=== PATIENT | male | born 1960 | race Caucasian/White ===

== ENCOUNTER → 2023-09-27 | Outpatient (CLI) | payer OTHER ==
[~2023-09-27] MED LIST: AMLO-257 PO; ATOR40TA71 PO; OLME40TA18 PO
== END | disposition home or self-care (01) ==
LOC: RAH 10:51
PROVIDERS: ATTEND Family Medicine
DX: R25.1 Tremor, unspecified (principal); R53.1 Weakness
CPT/HCPCS: 70551

== ENCOUNTER 2024-02-13 13:04 | Emergency (ER) | payer OTHER ==
[~2024-02-13] VITALS: Ht 188 cm; Wt 108.9 kg
--- NOTE | 2024-02-13 13:31 | ERN ---
ED Note History of Present Illness Stated Complaint: STOMACH Chief Complaint: Nausea,Vomiting,Diarrhea Time Seen by MD: 13:05 Dictation: Patient comes he has some nausea vomiting and diarrhea over the last 10 days. Denies chest pain shortness of breath. Has a falls. Denies any fevers chills denies any dysuria hematuria discharge Allergies: Coded Allergies: No Known Drug Allergies (Unverified Allergy, Unknown, 03/02/23) Home Meds Reported Medications Olmesartan Medoxomil (Olmesartan Medoxomil) 40 Mg Tablet, 40 MG PO DAILY, TAB 03/02/23 Atorvastatin Calcium (Atorvastatin Calcium) 40 Mg Tablet, 40 MG PO HS, TAB 03/02/23 Amlodipine Besylate (Amlodipine Besylate) 5 Mg Tablet, 5 MG PO DAILY, TAB 03/02/23 Past Medical History Past Medical History: High Cholesterol, Hypertension Surgical History: None Review of System Dictation Constitutional: Negative for fever,chills, and weight loss Eyes: Negative for injury, pain,redness, and discharge ENT: Negative for injury,pain or swelling Cardiovascular: Negative for chest pain, palpitations, and edema Respiratory: Negative for shortness of breath, cough, and wheezing, Abdomen/GI: Nausea vomiting diarrhea Back: Negative for injury and pain : Negative for injury, bleeding and discharge MS/Extremity: Negative for injury and deformity Skin: Negative for rash, and discoloration Neuro: Negative for headache, weakness, numbness, tingling, and seizure Psych: Negative for suicide ideation, homicidal ideation, and hallucinations Initial Vital Sign VS Vital Signs Date Time Temp Pulse Resp B/P (MAP) Pulse Ox O2 Delivery O2 Flow Rate FiO2 02/13/24 13:38 98.1 69 16 156/88 97 Room Air 0 02/13/24 13:41 21 Physical Exam Dictation General: awake, alert, NAD Head/Face: Normocephalic, atraumatic Eyes: PERRL, EOMI, vision at baseline ENT: oral cavity clear, TMs clear, no signs of infection Neck: Trachea midline, supple, no nuchal rigidity Cardiovascular: RRR, normal S1/S2, No MRGs, no JVD Respiratory: CTAB, no respiratory distress, No rales or wheezes Abdomen: Soft, non-tender, non-distended, normal bowel sounds, no guarding or rebound. Skin: Warm, dry, normal turgor, no rash MS/Extremity: Pulses equal, no cyanosis, neurovascular intact, FROM Neuro: COAx4, GCS 15, strength 5/5, CN 2-12 intact, normal cerebellar exam, normal gait, Psych: Normal behavior, mood, and affect normal Results (Laboratory/Radiology) Laboratory/Radiology Laboratory Tests Test 02/13/24 13:47 White Blood Count 7.1 K/uL (4.8-10.8) Red Blood Count 3.87 MIL/uL (4.50-6.20) L Hemoglobin 13.8 g/dL (14.0-18.0) L Hematocrit 40.3 % (42-54) L Mean Corpuscular Volume 104.1 fL (79-99) H Mean Corpuscular Hemoglobin 35.7 pg (27.0-33.0) H Mean Corpuscular Hemoglobin Concent 34.2 g/dL (32.0-36.0) Red Cell Distribution Width 13.2 % (11.0-15.5) Platelet Count 131 K/uL (130-400) Mean Platelet Volume 10.3 fL (7.5-10.5) Immature Granulocyte % (Auto) 0.4 % (0-1) Neutrophils (%) (Auto) 71.6 % (40.0-77.0) Lymphocytes (%) (Auto) 17.5 % (21.0-51.0) L Monocytes (%) (Auto) 9.2 % (3.0-13.0) Eosinophils (%) (Auto) 0.7 % (0.0-8.0) Basophils (%) (Auto) 0.6 % (0.0-5.0) Neutrophils # (Auto) 5.1 K/uL (1.8-7.7) Lymphocytes # (Auto) 1.2 K/uL (1.0-4.8) Monocytes # (Auto) 0.7 K/uL (0.1-1.0) Eosinophils # (Auto) 0.05 K/uL (0.00-0.70) Basophils # (Auto) 0.04 K/uL (0.00-0.20) Absolute Immature Granulocyte (auto 0.03 K/uL (0-1) Nucleated Red Blood Cells 0.0 % (0.0-0.19) Sodium Level 140 mmol/L (136-145) Potassium Level 3.0 mmol/L (3.5-5.1) *L Chloride Level 100 mmol/L (101-111) L Carbon Dioxide Level 25 mmol/L (21-32) Blood Urea Nitrogen 2 mg/dL (7-18) L Creatinine 0.7 mg/dL (0.5-1.3) Glomerular Filtration Rate Calc 102 mL/min (>90) Random Glucose 93 mg/dL (70-105) Total Calcium 7.3 mg/dL (8.5-10.1) L Total Bilirubin 1.7 mg/dL (0.2-1.0) H Aspartate Amino Transf (AST/SGOT) 160 U/L (10-37) H Alanine Aminotransferase (ALT/SGPT) 38 U/L (12-78) Alkaline Phosphatase 139 U/L (50-136) H Troponin I High Sensitivity 7 ng/L (4-75) Total Protein 7.1 g/dL (6.0-8.3) Albumin 2.2 g/dL (3.5-5.0) L Lipase 97 U/L (16-77) H ED Course ED Course Orders Procedure Category Date Status Time Cbc With Differential LAB 02/13/24 Complete 13:28 Comprehensive LAB 02/13/24 Complete Metabolic Panel 13:28 Troponin I High LAB 02/13/24 Complete Sensitivity 13:28 12 Lead Ekg Tracing- EKG 02/13/24 Complete Technical 13:28 Lactated Ringers PHA 02/13/24 Complete 1000ml (Lactated 13:30 Morphine 4mg Syg PHA 02/13/24 Complete (Morphine 4mg Syg) 13:30 Ondansetron 4mg Inj PHA 02/13/24 Complete (Zofran 4mg Inj) 13:30 Ct Abdomen/Pelvis W/O CT 02/13/24 Resulted Contrast 13:28 Chest 1vw RAD 02/13/24 Resulted 13:28 Lipase LAB 02/13/24 Complete 13:28 Potassium Chl 10% PHA 02/13/24 Complete Elixir 20meq (Kcl 10% 14:30 Potassium Chl 10% PHA 02/13/24 Complete Elixir 20meq (Kcl 10% 14:22 Current Medications Medications (Trade) Dose Ordered Sig/Meeta Route PRN Reason Start Time Stop Time Status Last Admin Dose Admin Lactated Ringer's 1,000 ml @ 0 mls/hr ONCE ONCE IV 02/13/24 13:30 02/13/24 13:31 DC 02/13/24 14:05 Morphine Sulfate (morPHINE 4MG SYG) 4 mg ONCE ONCE IVP 02/13/24 13:30 02/13/24 13:31 DC 02/13/24 14:13 Ondansetron HCl (zoFRAN 4MG INJ) 4 mg ONCE ONCE IVP 02/13/24 13:30 02/13/24 13:31 DC 02/13/24 14:05 Potassium Chloride (KCl 10% Elixir 20meq/15ml) 20 meq STK-MED ONCE .ROUTE 02/13/24 14:22 02/13/24 14:27 DC Potassium Chloride (KCl 10% Elixir 20meq/15ml) 40 meq ONCE ONCE PO 02/13/24 14:30 02/13/24 14:31 DC 02/13/24 14:24 Vital Signs Date Time Temp Pulse Resp B/P (MAP) Pulse Ox O2 Delivery O2 Flow Rate FiO2 02/13/24 13:41 98.1 69 16 156/88 97 Room Air* 0 21 02/13/24 13:38 98.1 69 16 156/88 97 Room Air 0 Medical Decision Making MDM Likely gastroenteritis. So we can do some labs tests imaging make sure he is stable. I told him it could be there could be Crohn's or UC. And/or other pathologies. But we will check for stability and make sure he is safe for outpatient management there agreement this no other questions complaints concerns at this time. DX & DISP Disposition: Discharge Departure Impression: Primary Impression: Nausea & vomiting Additional Impressions: Diarrhea, Diverticulitis Condition: Stable Scripts Ondansetron (Ondansetron Odt) 4 Mg Tab.rapdis 4 MG PO 5X/DAY for 5 Days, #25 TAB Prov: NEIL EPPERSON MD 02/13/24 Amoxicillin/Potassium Clav (Amox Tr-K Clv 875-125 mg Tab) 875 Mg-125 Mg Tablet 1 EACH PO BID for 10 Days, #10 TAB 0 Refills Prov: NEIL EPPERSON MD 02/13/24 Referrals: ASHLYN MARTE MD (PCP) NEIL EPPERSON MD Feb 13, 2024 13:31
--- NOTE | 2024-02-13 13:38 | EKG ---
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
--- NOTE | 2024-02-13 13:56 | HMCIMG ---
CHEST 1VW HISTORY: Chest pain COMPARISON: 03/02/2023 FINDINGS: A frontal projection of the chest was obtained. Prominent interstitial markings are seen with possible superimposed infiltrates. The heart is borderline enlarged. Degenerative changes are seen. IMPRESSION: 1. Prominent interstitial markings are seen with possible superimposed infiltrates.
[2024-02-13 14:05] LABS: BASOPHILS # (AUTO) 0.04 K/uL (0.00-0.20); BASOPHILS % (AUTO) 0.6 % (0.0-5.0); EOSINOPHILS # (AUTO) 0.05 K/uL (0.00-0.70); EOSINOPHILS % (AUTO) 0.7 % (0.0-8.0); HEMATOCRIT 40.3 % (42-54); IMMATURE GRANULOCYTE ABSOLUTE 0.03 K/uL (0-1); LYMPHOCYTES # (AUTO) 1.2 K/uL (1.0-4.8); LYMPHOCYTES % (AUTO) 17.5 % (21.0-51.0); MEAN CORPUSCULAR HEMOGLOBIN 35.7 pg (27.0-33.0); MEAN CORPUSCULAR HGB CONC 34.2 g/dL (32.0-36.0); MEAN CORPUSCULAR VOLUME 104.1 fL (79-99); MONOCYTES # (AUTO) 0.7 K/uL (0.1-1.0); MONOCYTES % (AUTO) 9.2 % (3.0-13.0); NEUTROPHILS # (AUTO) 5.1 K/uL (1.8-7.7); NEUTROPHILS % (AUTO) 71.6 % (40.0-77.0); PLATELET COUNT (AUTO) 131 K/uL (130-400); RED BLOOD CELL COUNT(AUTO) 3.87 MIL/uL (4.50-6.20); RED CELL DISTRIBUTION WIDTH 13.2 % (11.0-15.5); WHITE BLOOD COUNT (AUTO) 7.1 K/uL (4.8-10.8)
[2024-02-13] MEDS: ondanSETRON 4MG INJ IVP ONE (14:05)
[2024-02-13] MEDS: LACTATED RINGERS 1000ML 1,000 ML IV ONE (14:05)
[2024-02-13 14:12] LABS: ALBUMIN 2.2 g/dL (3.5-5.0); BILIRUBIN,TOTAL 1.7 mg/dL (0.2-1.0); CREATININE 0.7 mg/dL (0.5-1.3); TOTAL PROTEIN, SERUM 7.1 g/dL (6.0-8.3)
[2024-02-13] MEDS: morPHINE 4 MG SYG IVP ONE (14:13)
--- NOTE | 2024-02-13 14:19 | HMCIMG ---
CT ABDOMEN/PELVIS W/O CONTRAST HISTORY: Abdominal pain COMPARISON: None TECHNIQUE: Multiple sequential axial images of the abdomen and pelvis were obtained from the dome of the diaphragm through symphysis pubis. Patient was not given contrast through intravenous route. Oral contrast was not given. FINDINGS: No pleural effusion is seen bilaterally. There is no evidence of parenchymal disease or pulmonary nodule of the visualized lower lungs. Degenerative changes of the thoracolumbar spine are present. The heart is not enlarged. Liver is enlarged with fatty changes measuring 28 cm. There is diverticulosis. Minimal mesenteric fat stranding is seen adjacent to the sigmoid colon may be related to early acute diverticulitis. No focal abscess is seen. The liver, spleen, adrenal glands and pancreas are unremarkable. There is no evidence of hydronephrosis bilaterally. No evidence of renal stone is seen. Fecal material is seen in the colon. There are normal size retroperitoneal and mesenteric lymph nodes. Small amount of free fluid is seen in the pelvis. Atherosclerotic changes are present. Pelvic sidewalls are symmetric bilaterally. Bladder is well distended without wall thickening. IMPRESSION: 1. There is diverticulosis. Minimal mesenteric fat stranding is seen adjacent to the sigmoid colon may be related to early acute diverticulitis. No focal abscess is seen. Small amount of free fluid is seen in the pelvis. CT was performed with one or more following dose reduction techniques: automated exposure control, adjustment of the mA and kv according to patient's size, or use of a iterative reconstruction technique.
[2024-02-13] MEDS: PoTASSium chl 10% ELIXIR 20MEQ 20 MEQ/15 ML UDCUP PO ONE (14:24)
[2024-02-13] MEDS ORDERED: AMOX1TAB16 PO (14:46)
[2024-02-13] MEDS ORDERED: ONDA-243 PO (14:46)
[2024-02-13] MEDS: PoTASSium chl 10% ELIXIR 20MEQ 20 MEQ/15 ML UDCUP ONE (15:31)
[2024-02-13 15:41] VITALS: BP 107/59; PULSE 97; RESP 18; TEMP 98.1; O2SAT 97
== END 2024-02-13 16:14 | disposition home or self-care (01) ==
LOC: EDH 13:04
DX: R11.2 Nausea with vomiting, unspecified (principal); R19.7 Diarrhea, unspecified; K57.32 Diverticulitis of large intestine without perforation or abscess without bleeding; E78.00 Pure hypercholesterolemia, unspecified; I10 Essential (primary) hypertension
CPT/HCPCS: 99285; 74176; 96374; 71045; 96361; 96375; 84484; 80053; 83690; 85025; 36415; 93005; J7120; J2405; J2270

== ENCOUNTER 2025-01-02 07:58 | Observation (INO) | payer OTHER, MEDICARE ==
[~2025-01-02] VITALS: Ht 188 cm; Wt 95.3 kg
--- NOTE | 2025-01-02 08:17 | NUR ---
PATIENT IN ROOM
[2025-01-02 08:26] LABS: IMMATURE GRANULOCYTE ABSOLUTE 0.03 K/uL (0-1); NUCLEATED RED BLOOD CELLS 0.0 % (0.0-0.19); PLATELET COUNT (AUTO) 95 K/uL (130-400); RED BLOOD CELL COUNT(AUTO) 4.01 MIL/uL (4.50-6.20); RED CELL DISTRIBUTION WIDTH 11.9 % (11.0-15.5); WHITE BLOOD COUNT (AUTO) 5.5 K/uL (4.8-10.8)
[2025-01-02 08:48] LABS: ASPARTATE AMINOTRANSFERASE 183.0 U/L (10-37); CREATINE KINASE, TOTAL 25.0 U/L (21-232); CREATININE 1.0 mg/dL (0.5-1.3); GLOMERULAR FILTR. RATE CALC 83.0 mL/min (>90); GLUCOSE,RANDOM 109.0 mg/dL (70-105); SODIUM SERUM 130.0 mmol/L (136-145); TOTAL PROTEIN, SERUM 7.7 g/dL (6.0-8.3); UREA NITROGEN, BLOOD 7.0 mg/dL (7-18)
--- NOTE | 2025-01-02 08:58 | NUR ---
PT PLACE ON 2L OF OXYGEN. PT STATES FEELING SHORT OF BREATH. PT'S O2 LEVEL IS 100%.
--- NOTE | 2025-01-02 09:02 | HMCIMG ---
EXAM: CR Chest, 1 View. CLINICAL HISTORY: fall COMPARISON: None. FINDINGS: Lungs show no pulmonary infiltrate or other acute finding. No pleural effusion. There is no pneumothorax. The cardiomediastinal silhouette is within normal limits. No acute osseous abnormality is seen. IMPRESSION: No acute cardiopulmonary disease is seen. /[place]
--- NOTE | 2025-01-02 09:15 | HMCIMG ---
EXAM: CT Head Without IV contrast. CLINICAL HISTORY: Fall. TECHNIQUE: Axial computed tomography images of the head/brain without intravenous contrast. COMPARISON: None provided. FINDINGS: BRAIN: No evidence of acute hemorrhage. No mass lesion. No CT evidence for acute territorial infarct. No midline shift or extra-axial collections. Diffuse cerebral atrophy in the form of prominent cortical sulci and ventricular system. Diffuse hypodensities in bilateral periventricular white matter, suggestive of mild chronic small vessel ischemic changes. VENTRICLES: No hydrocephalus. ORBITS: The orbits are unremarkable. SINUSES AND MASTOIDS: The paranasal sinuses and mastoid air cells are clear. BONES: No fracture. SOFT TISSUES: Unremarkable. IMPRESSION: No acute intracranial abnormality. Mild chronic ischemic changes secondary to small vessel disease. /[place]
[2025-01-02] MEDS: PoTASSium chloRIDE 20MEQ ER 20 MEQ ERTAB PO STA (09:25)
[2025-01-02] MEDS: MAGNESIUM OXIDE 400 MG TABLET PO STA (09:26)
[2025-01-02 10:25] LABS: APPEARANCE,URINE CLEAR (CLEAR); GLUCOSE, URINE (UA) 100 mg/dL (NEGATIVE); LEUKOCYTE ESTERASE ,URINE NEGATIVE Leu/uL (NEGATIVE); NITRATE,URINE POSITIVE (NEGATIVE); OCCULT BLOOD,URINE NEGATIVE (NEGATIVE)
[2025-01-02 10:34] LABS: ADD UA MICROSCOPIC YES
[2025-01-02 10:39] LABS: CALCIUM OXALATE CRYSTALS,UR Few /LPF (None Seen); SQUAMOUS EPITHELIAL CELL,UR 0-2 /HPF (0-2)
--- NOTE | 2025-01-02 10:51 | HP ---
[facility] HISTORY AND PHYSICAL Date of Service: Jan 02, 2025 Time of Service: 10:34 HISTORY OF PRESENT ILLNESS: [ ] admission date: weakness PCP David Carcamo this a 64 year old male after having a fall at home 2-3 days ago. Patient has a significant medical history of falls in the past patient reports worsening lower extremity weakness. Patient reports he drinks alcohol his last consumption was on Monday . He also Reports his also drinks heavily. Patient denies any episodes of chest pain, dizziness palpitations diarrhea nausea and vomiting. But he does mention he has been getting shortness a breath. Patient is very hard of hearing. The patient appears fragile weak. Patient will be started on a banana bag and we will be monitored closely we will replace electrolytes as per protocol. Labs on admission WBCs 5.5 hemoglobin 14.6 hematocrit 39.8 platelets 95 sodium 130 potassium 2.9 chloride 91 total bilirubin 3.9 direct bilirubin 2.7 elevated troponins slightly AST 183 ALT 126 CK [address] head was negative, chest x-ray with no acute cardiopulmonary disease REVIEW OF SYSTEMS a 12 point ROS obtained all relevant positive documented otherwise ROS negative PAST MEDICAL HISTORY: [ ] HTN, HLD PAST SURGICAL HISTORY: [ ] none PAST SOCIAL HISTORY: [ ] ETOH dependency denies smoking tobacco products and illicit drug use FAMILY HISTORY: [ ] noncontributory Coded Allergies: No Known Drug Allergies (Unverified Allergy, Unknown, 03/02/23) PHYSICAL EXAM GENERAL APPEARANCE: The patient is awake, alert, and oriented, in no acute cardiopulmonary distress. NEUROLOGICAL: Cranial nerves II-XII grossly intact. Motor is 5/5 in bilateral upper and lower extremities proximal to distal. No sensory deficits. HEENT: Face is symmetric. Pupils are equal and reactive. Extraocular movements are intact. NECK: Supple. No JVD. No thyromegaly. No submental, submandibular, pre- /postauricular, occipital or supraclavicular lymphadenopathy. CHEST: Normal chest expansion. No Telemetry. LUNGS: Absence of any rales, rhonchi or any wheezing. CARDIOVASCULAR: Regular. S1 and S2 normal. No appreciable rubs, murmurs or gallops. ABDOMEN: Soft, nontender, and nondistended. There is no rebound, voluntary guarding, or rigidity. : Deferred. No Adler. EXTREMITIES: Non-edematous and not cyanotic. No clubbing. Good capillary refill. SKIN: No skin breakdown. Vital Sign (Last 24 Hours) 01/02/25 08:17 Temp 98.1 Pulse 72 Resp 15 B/P (MAP) 128/76 Pulse Ox 98 O2 Delivery Room Air* O2 Flow Rate 0 FiO2 21 LABS: Laboratory: Test 01/02/25 08:21 Range/Units White Blood Count 5.5 4.8-10.8 K/uL Red Blood Count 4.01 L 4.50-6.20 MIL/uL Hemoglobin 14.6 14.0-18.0 g/dL Hematocrit 39.8 L 42-54 % Mean Corpuscular Volume 99.3 H 79-99 fL Mean Corpuscular Hemoglobin 36.4 H 27.0-33.0 pg Mean Corpuscular Hemoglobin Concent 36.7 H 32.0-36.0 g/dL Red Cell Distribution Width 11.9 11.0-15.5 % Platelet Count 95 L 130-400 K/uL Mean Platelet Volume 9.8 7.5-10.5 fL Immature Granulocyte % (Auto) 0.5 0-1 % Neutrophils (%) (Auto) 68.4 40.0-77.0 % Lymphocytes (%) (Auto) 19.6 L 21.0-51.0 % Monocytes (%) (Auto) 9.7 3.0-13.0 % Eosinophils (%) (Auto) 1.3 0.0-8.0 % Basophils (%) (Auto) 0.5 0.0-5.0 % Neutrophils # (Auto) 3.7 1.8-7.7 K/uL Lymphocytes # (Auto) 1.1 1.0-4.8 K/uL Monocytes # (Auto) 0.5 0.1-1.0 K/uL Eosinophils # (Auto) 0.07 0.00-0.70 K/uL Basophils # (Auto) 0.03 0.00-0.20 K/uL Absolute Immature Granulocyte (auto 0.03 0-1 K/uL Nucleated Red Blood Cells 0.0 0.0-0.19 % Red Blood Cell Morphology See comments Sodium Level 130 L 136-145 mmol/L Potassium Level 2.9 *L 3.5-5.1 mmol/L Chloride Level 91 L 101-111 mmol/L Carbon Dioxide Level 21 21-32 mmol/L Blood Urea Nitrogen 7 7-18 mg/dL Creatinine 1.0 0.5-1.3 mg/dL Glomerular Filtration Rate Calc 83 >90 mL/min Random Glucose 109 H 70-105 mg/dL Lactic Acid Level 1.9 0.8-2.5 mmol/L Total Calcium 9.4 8.5-10.1 mg/dL Total Bilirubin 3.9 H 0.2-1.0 mg/dL Direct Bilirubin 2.7 H 0.0-0.3 mg/dL Aspartate Amino Transf (AST/SGOT) 183 H 10-37 U/L Alanine Aminotransferase (ALT/SGPT) 126 H 12-78 U/L Alkaline Phosphatase 55 50-136 U/L Total Creatine Kinase 25 # 21-232 U/L Troponin I High Sensitivity 15 4-75 ng/L Total Protein 7.7 6.0-8.3 g/dL Albumin 3.5 3.5-5.0 g/dL Current Medications Medications (Trade) Dose Ordered Sig/Meeta Route PRN Reason Start Time Stop Time Status Last Admin Dose Admin Diazepam (VALium 5 MG/ML 2 ML SYG) 5 mg ONCE STAT IV 01/02/25 09:40 01/02/25 09:46 DC 01/02/25 09:54 5 MG Magnesium Oxide (Mag-Ox) 800 mg ONCE STAT PO 01/02/25 08:57 01/02/25 09:01 DC 01/02/25 09:26 800 MG Ondansetron HCl (zoFRAN 4MG INJ) 4 mg ONCE STAT IVP 01/02/25 09:40 01/02/25 09:46 DC 01/02/25 09:54 4 MG Potassium Chloride (K-Dur/Klor-Con 20meq) 40 meq ONCE STAT PO 01/02/25 08:57 01/02/25 09:01 DC 01/02/25 09:25 40 MEQ DIAGNOSTICS / RADIOLOGY: [ ] ASSESSMENT: Multiple falls in the past POA most recent two days ago POA electrolytes derangement: hyponatremia Hypokalemia Recent fall two days ago POA Failure to thrive POA Physical deconditioning CHINIK Alcohol dependency chronic problems: HTN, HLD PLAN: Admit: medical surgical with Tele condition:guarded Status:full code IVF:Banana bag x3 days, Thiamine IV daily, and folic acid daily > CIWA protocol > Replace electrolytes as needed as per protocol to keep potassium above 4.0 magnesium 2.0. Consultants: none Antibiotics: None Imaging carotid Dopplers 2D echo to evaluate LV function PT eval and treat. 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 PRN: MEDICATIONS Tylenol 650 mg po every 4 hrs for fever Zofran 4 mg IV every 6 hrs for n/v Hydralazine 5 mg IV every 4 hrs systolic pressure > 160 bowel regiment: lactulose 20 gm PO BID PRN constipation Supportive measures: DVT ppx, GI ppx all questions answered time spent: > 35 min Supervising MD: Dr. Lilly P. c/d This document was generated in part using voice recognition software, occasional wrong word or sound alike substitutions may have occurred due to the inherent limitations of voice recognition software. Read the chart carefully and recognize using context, where the substitutions have occurred. Although every effort was made to edit the content, supervisor stave cutting and typing errors may occur ADVANCED CARE PLANNING 1. Which of the following were discussed? Hospice Care - Yes / No Therapeutic options - Yes / No Advance Directives - Yes / No Other discussions - 2. Discussed with who? 3. Voluntary nature of this service was explained to the patient? Yes / No 4. Amount of time spent - 5. Reviewed by Physician? (if this service was performed by NPP) Yes / No ATTESTATION BY PHYSICIAN I have seen and examined the patient. I reviewed the documentation, medical decision making, and treatment plan as noted by the mid-level provider above. I agree with the findings and plan of care. Joyce Lilly MD, [facility] Jan 02, 2025 10:51
[2025-01-02] MEDS ORDERED: LACTULOSE 20 GM/30 ML UDCUP PO PRN (11:00)
[2025-01-02] MEDS ORDERED: PHARMACY COMMUNICATION MISC PRN (11:00)
[2025-01-02] MEDS ORDERED: COMPOUND IV REFRIGERATED 1 EACH IVSOLN MISC PRN (11:00)
[2025-01-02] MEDS ORDERED: PoTASSium chl 10% ELIXIR 20MEQ 20 MEQ/15 ML UDCUP PO PRN (11:00)
--- NOTE | 2025-01-02 11:06 | ERN ---
ED Note History of Present Illness Stated Complaint: WEAKNESS Chief Complaint: Weakness Time Seen by MD: 08:01 Dictation: 64-year-old male presenting to the emergency department after fall three four days ago and worsening generalized weakness patient lives at home with , reported patient does drink heavily and has not been doing well over the past few days. Patient reports feeling weak with nausea no chest pain or shortness a breath. Allergies: Coded Allergies: No Known Drug Allergies (Unverified Allergy, Unknown, 03/02/23) Home Meds Active Scripts Ondansetron (Ondansetron Odt) 4 Mg Tab.rapdis, 4 MG PO 5X/DAY for 5 Days, #25 TAB Prov:NEIL EPPERSON MD 02/13/24 Amoxicillin/Potassium Clav (Amox Tr-K Clv 875-125 mg Tab) 875 Mg-125 Mg Tablet, 1 EACH PO BID for 10 Days, #10 TAB 0 Refills Prov:NEIL EPPERSON MD 02/13/24 Reported Medications Olmesartan Medoxomil (Olmesartan Medoxomil) 40 Mg Tablet, 40 MG PO DAILY, TAB 03/02/23 Atorvastatin Calcium (Atorvastatin Calcium) 40 Mg Tablet, 40 MG PO HS, TAB 03/02/23 Amlodipine Besylate (Amlodipine Besylate) 5 Mg Tablet, 5 MG PO DAILY, TAB 03/02/23 Past Medical History Past Medical History: High Cholesterol, Hypertension Surgical History: None Review of System Dictation Constitutional: Negative for fever,chills, and weight loss Eyes: Negative for injury, pain,redness, and discharge ENT: Negative for injury,pain or swelling Cardiovascular: Negative for chest pain, palpitations, and edema Respiratory: Negative for shortness of breath, cough, and wheezing, Abdomen/GI: Negative for abdominal pain, positive for nausea Back: Negative for injury and pain : Negative for injury, bleeding and discharge MS/Extremity: Negative for injury and deformity Skin: Negative for rash, and discoloration Neuro: Per HPI Initial Vital Sign VS Vital Signs Date Time Temp Pulse Resp B/P (MAP) Pulse Ox O2 Delivery O2 Flow Rate FiO2 01/02/25 07:59 97.9 116 18 137/72 98 Room Air 0 01/02/25 08:17 21 Physical Exam Dictation General: awake, alert, appears unkept Head/Face: Normocephalic, atraumatic Eyes: PERRL, EOMI, vision at baseline ENT: oral cavity clear, TMs clear, no signs of infection Neck: Trachea midline, supple, no nuchal rigidity Cardiovascular: RRR, normal S1/S2, No MRGs, no JVD Respiratory: CTAB, no respiratory distress, No rales or wheezes Abdomen: Soft, non-tender, non-distended, normal bowel sounds, no guarding or rebound. Skin: Warm, dry, normal turgor, no rash MS/Extremity: Pulses equal, no cyanosis, neurovascular intact, FROM Neuro: COAx4, GCS 15, strength 5/5, CN 2-12 intact, Results (Laboratory/Radiology) Laboratory/Radiology Laboratory Tests Test 01/02/25 08:21 01/02/25 10:17 White Blood Count 5.5 K/uL (4.8-10.8) Red Blood Count 4.01 MIL/uL (4.50-6.20) L Hemoglobin 14.6 g/dL (14.0-18.0) Hematocrit 39.8 % (42-54) L Mean Corpuscular Volume 99.3 fL (79-99) H Mean Corpuscular Hemoglobin 36.4 pg (27.0-33.0) H Mean Corpuscular Hemoglobin Concent 36.7 g/dL (32.0-36.0) H Red Cell Distribution Width 11.9 % (11.0-15.5) Platelet Count 95 K/uL (130-400) L Mean Platelet Volume 9.8 fL (7.5-10.5) Immature Granulocyte % (Auto) 0.5 % (0-1) Neutrophils (%) (Auto) 68.4 % (40.0-77.0) Lymphocytes (%) (Auto) 19.6 % (21.0-51.0) L Monocytes (%) (Auto) 9.7 % (3.0-13.0) Eosinophils (%) (Auto) 1.3 % (0.0-8.0) Basophils (%) (Auto) 0.5 % (0.0-5.0) Neutrophils # (Auto) 3.7 K/uL (1.8-7.7) Lymphocytes # (Auto) 1.1 K/uL (1.0-4.8) Monocytes # (Auto) 0.5 K/uL (0.1-1.0) Eosinophils # (Auto) 0.07 K/uL (0.00-0.70) Basophils # (Auto) 0.03 K/uL (0.00-0.20) Absolute Immature Granulocyte (auto 0.03 K/uL (0-1) Nucleated Red Blood Cells 0.0 % (0.0-0.19) Red Blood Cell Morphology See comments Sodium Level 130 mmol/L (136-145) L Potassium Level 2.9 mmol/L (3.5-5.1) *L Chloride Level 91 mmol/L (101-111) L Carbon Dioxide Level 21 mmol/L (21-32) Blood Urea Nitrogen 7 mg/dL (7-18) Creatinine 1.0 mg/dL (0.5-1.3) Glomerular Filtration Rate Calc 83 mL/min (>90) Random Glucose 109 mg/dL (70-105) H Lactic Acid Level 1.9 mmol/L (0.8-2.5) Total Calcium 9.4 mg/dL (8.5-10.1) Total Bilirubin 3.9 mg/dL (0.2-1.0) H Direct Bilirubin 2.7 mg/dL (0.0-0.3) H Aspartate Amino Transf (AST/SGOT) 183 U/L (10-37) H Alanine Aminotransferase (ALT/SGPT) 126 U/L (12-78) H Alkaline Phosphatase 55 U/L (50-136) Total Creatine Kinase 25 U/L (21-232) # Troponin I High Sensitivity 15 ng/L (4-75) Total Protein 7.7 g/dL (6.0-8.3) Albumin 3.5 g/dL (3.5-5.0) Urine Color DARK YELLOW (YELLOW) Urine Appearance CLEAR (CLEAR) Urine pH 6.5 (5.0-8.0) Urine Specific Printer 1.020 (1.001-1.031) Urine Protein 30 mg/dL (NEGATIVE) H Urine Glucose (UA) 100 mg/dL (NEGATIVE) H Urine Ketones >=80 mg/dL (NEGATIVE) H Urine Occult Blood NEGATIVE (NEGATIVE) Urine Nitrate POSITIVE (NEGATIVE) H Urine Bilirubin LARGE mg/dL (NEGATIVE) H Urine Urobilinogen >=8.0 mg/dL (0.2-1.0) H Urine Leukocyte Esterase NEGATIVE Antolin/uL Urine RBC 0-1 /HPF (0-1) Urine WBC 0-1 /HPF (0-1) Urine Squamous Epithelial Cells 0-2 /HPF (0-2) Urine Calcium Oxalate Crystals Few /LPF (None Seen) H Urine Bacteria Few /HPF (None Seen) Labs Reviewed?: Yes ED Course ED Course Orders Procedure Category Date Status Time 12 Lead Ekg Tracing- EKG 01/02/25 Logged Technical 08:03 Basic Metabolic Panel LAB 01/02/25 Complete 08:03 Blood Cult CHERELLE 01/02/25 In Process 08:03 Cbc With Differential LAB 01/02/25 Complete 08:03 Hepatic Function Panel LAB 01/02/25 Complete 08:03 Creatine Kinase, Total LAB 01/02/25 Complete 08:03 Lactic Acid LAB 01/02/25 Complete 08:03 Troponin I High LAB 01/02/25 Complete Sensitivity 08:03 Urinalysis Profile LAB 01/02/25 Complete 08:03 Chest 1vw RAD 01/02/25 Resulted 08:03 Ct Head/Brain W/O CT 01/02/25 Resulted Contrast 08:03 Magnesium Oxide PHA 01/02/25 Complete (Mag-Ox) 08:57 Potassium Chloride PHA 01/02/25 Complete 20meq Er (K-Dur/Klor- 08:57 Ondansetron 4mg Inj PHA 01/02/25 Complete (Zofran 4mg Inj) 09:40 Diazepam 5 Mg/Ml 2 Ml PHA 01/02/25 Complete Syg (Valium 5 Mg/M 09:40 Culture Urine CHERELLE 01/02/25 In Process 10:34 Admit Orders ADM 01/02/25 Transmitted 10:42 Etoh Alcohol DICK 01/02/25 In Process Withdrawal Ords 10:42 Chlordiazepoxide Hcl PHA 01/02/25 In Process 25 Mg Cap (Librium 11:00 Lorazepam 2 Mg PHA 01/02/25 In Process (Ativan) 11:00 Thiamine Hcl (Vitamin PHA 01/02/25 In Process B-1)... 11:00 Thiamine Hcl (Vitamin PHA 01/03/25 In Process B-1) 09:00 Folic Acid 1 Mg PHA 01/03/25 In Process Tablet (Folic Acid 1 09:00 Pharmacy PHA 01/02/25 In Process Communication 11:00 Use The Ciwa-Ar CPOE 01/02/25 Transmitted Assmt. Tool 10:42 Assess The Need For CPOE 01/02/25 Transmitted Seizure & 10:42 Vs Per Unit Routine & CPOE 01/02/25 Transmitted With 10:42 Document Etoh CPOE 01/02/25 Transmitted Withdrawal Score 10:42 Initiate Po DICK 01/02/25 In Process Hypokalemia Protoc 10:42 Potassium Chloride PHA 01/02/25 In Process 20meq/100ml ([place] 11:00 Potassium Chl 10% PHA 01/02/25 In Process Elixir 20meq (Kcl 10% 11:00 Potassium Chloride PHA 01/02/25 In Process 20meq Er (K-Dur/Klor- 11:00 Notify Physician If CPOE 01/02/25 Transmitted There Is 10:42 Notify Md On The Next CPOE 01/02/25 Transmitted 10:42 Notify Md On The CPOE 01/02/25 Transmitted Next(Cont.) 10:42 Magnesium 2gm Premix PHA 01/02/25 In Process 50ml (Magnesium 2gm 11:00 Apply Scds CPOE 01/02/25 Transmitted 10:42 Fall Precautions CPOE 01/02/25 Transmitted 10:42 Pt Eval And Treat PT 01/02/25 Transmitted 10:42 Hydralazine 20mg Inj PHA 01/02/25 In Process (Apresoline 20mg In 11:00 Ondansetron 4mg Inj PHA 01/02/25 In Process (Zofran 4mg Inj) 11:00 Lactulose 20 Gm/30 Ml PHA 01/02/25 In Process Udcup (Constulose 11:00 Pantoprazole 40mg Inj PHA 01/03/25 In Process (Protonix 40mg Inj 09:00 Pantoprazole 40mg Inj PHA 01/02/25 Complete (Protonix 40mg Inj 11:00 Compound Iv PHA 01/02/25 In Process Refrigerated 11:00 Current Medications Medications (Trade) Dose Ordered Sig/Meeta Route PRN Reason Start Time Stop Time Status Last Admin Dose Admin Chlordiazepoxide HCl (LIBrium 25 MG CAP) 25 mg Q2H PRN PO ALCOHOL WITHDRAWAL PROTOCOL 01/02/25 11:00 01/09/25 10:59 Diazepam (VALium 5 MG/ML 2 ML SYG) 5 mg ONCE STAT IV 01/02/25 09:40 01/02/25 09:46 DC 01/02/25 09:54 Folic Acid (FOLic ACID 1 MG TABLET) 1 mg DAILY PO 01/03/25 09:00 01/05/25 09:01 Hydralazine HCl (APRESOLine 20MG INJ) 5 mg Q4H PRN IV ADMINISTER FOR SBP > 160 01/02/25 11:00 02/01/25 10:59 Lactulose (Constulose 20gm/ 30ml Udcup) 20 gm BID PRN PO CONSTIPATION 01/02/25 11:00 02/01/25 10:59 Lorazepam (AtiVAN) 2 mg Q4H PRN IVP ALCOHOL WITHDRAWAL PROTOCOL 01/02/25 11:00 01/09/25 10:59 Magnesium Oxide (Mag-Ox) 800 mg ONCE STAT PO 01/02/25 08:57 01/02/25 09:01 DC 01/02/25 09:26 Magnesium Sulfate 50 ml @ 0 mls/hr PROTOCOL PRN IV low mag level 01/02/25 11:00 02/01/25 10:59 Ondansetron HCl (zoFRAN 4MG INJ) 4 mg ONCE STAT IVP 01/02/25 09:40 01/02/25 09:46 DC 01/02/25 09:54 Ondansetron HCl (zoFRAN 4MG INJ) 4 mg Q6H PRN IVP NAUSEA/VOMITING 01/02/25 11:00 02/01/25 10:59 Pantoprazole Sodium (PROTonix 40MG INJ) 40 mg DAILY IVP 01/03/25 09:00 02/02/25 08:59 Pantoprazole Sodium (PROTonix 40MG INJ) 40 mg ONCE ONCE IVP 01/02/25 11:00 01/02/25 11:01 DC Pharmacy Profile Note (Pharmacy Communication) 1 each PROTOCOL PRN MISC ETOH Withdrawal Score changes 01/02/25 11:00 01/09/25 10:59 Potassium Chloride 100 ml @ 100 mls/hr AD PRN IV POTASSIUM PROTOCOL 01/02/25 11:00 02/01/25 10:59 Potassium Chloride (K-Dur/Klor-Con 20meq) 20 meq AD PRN PO POTASSIUM PROTOCOL 01/02/25 11:00 02/01/25 10:59 Potassium Chloride (K-Dur/Klor-Con 20meq) 40 meq ONCE STAT PO 01/02/25 08:57 01/02/25 09:01 DC 01/02/25 09:25 Potassium Chloride (KCl 10% Elixir 20meq/15ml) 20 meq AD PRN PO POTASSIUM PROTOCOL 01/02/25 11:00 02/01/25 10:59 Thiamine HCl (Vitamin B-1) 100 mg DAILY IM 01/03/25 09:00 01/05/25 09:01 Thiamine HCl 100 mg/Folic Acid 1 mg/Multivitamins/ Minerals 10 ml/ Sodium Chloride 1,011.2 ml @ 100 mls/ hr Q24H IV 01/02/25 11:00 01/04/25 21:07 Vital Signs Date Time Temp Pulse Resp B/P (MAP) Pulse Ox O2 Delivery O2 Flow Rate FiO2 01/02/25 08:17 98.1 72 15 128/76 98 Room Air* 0 21 01/02/25 07:59 97.9 116 18 137/72 98 Room Air 0 Medical Decision Making MDM MDM: Differential diagnosis: Rationale: Tests considered and ordered secondary to shared decision making include: labs, ECG and radiology Previous outside records reviewed: Old ER visits. Risk of complication and/or morbidity or mortality of patient management: None Medications-Per medication reconciliation Need for hospitalization: Patient does meet criteria for hospitalization. Need for emergency major/minor surgery: No There are no social concerns with this patient. Prescription drug management Prescriptions will include symptomatic care Patient's prior external medical records from other ER visits were reviewed by me as indicated. Prior testing and results from previous visits were reviewed. Prior tests were taken into account with medical decision making and resource utilization, independent historian/historians were used to obtain complete medical history. I independently interpreted the test that were performed, results were reviewed by me and considered findings on radiology if ordered. Medical management and examination interpretation discussions were had by me with other qualified healthcare professionals as indicated for the patient's care. 64-year-old male with generalized weakness fall, failure to thrive and ETOH intake, potassium was 2.9, hemodynamically stable CT scan negative for acute bleed, admitting for further care and evaluation, patient did develop some shortness a breath once arrived in the emergency department and anxiety, potassium and magnesium replaced also placed on Valium due to concern of withdrawal symptoms however currently CIWA score is low. DX & DISP Disposition: Inpatient Departure Impression: Primary Impression: Nausea & vomiting Additional Impressions: Generalized weakness, Hypokalemia, Failure to thrive Condition: Stable Referrals: ASHLYN MARTE MD (PCP) ALINE CHAPMAN MD Jan 02, 2025 11:06
--- NOTE | 2025-01-02 11:23 | EKG ---
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
[2025-01-02] MEDS: THIAMINE HCL 100 MG, FOLic ACID 5 MG/ML VIAL 1 MG, M.V.I. IV [ADULT] 10 ML in 0.9%NACL ... IV SCH (11:40)
--- NOTE | 2025-01-02 11:53 | NUR ---
EVI KHAN AT BEDSIDE
--- NOTE | 2025-01-02 12:11 | NUR ---
REPORT GIVEN TO NURSE LAN
--- NOTE | 2025-01-02 12:31 | NUR ---
DCP:HOME vs SNF Pt currently lives at home with his . Pt states that his is a "heavy drinker". When SW asked if he drank he stated "once in a while". SW offered him community resources however he declined. Pt denied any home health or provider services. Pt claims that he hasn't been able to shower in "about a week" because if doesn't feel like it. PCP is Dr. David Cisse and uses [facility] for any RX needs. At [place] pt states that he is willing to consider a SNF if recommended.
[2025-01-02 16:00] VITALS: BP 152/90; PULSE 89; RESP 19; TEMP 98.5
[2025-01-02 19:44] VITALS: O2SAT 93
[2025-01-02] MEDS: PoTASSium chloRIDE 20MEQ ER 20 MEQ ERTAB PO PRN (19:44)
[2025-01-02 20:10] VITALS: BP 115/72; PULSE 92; RESP 20; TEMP 98.2
--- NOTE | 2025-01-02 22:33 | HMCIMG ---
EXAM: US Duplex Bilateral Carotid and Vertebral Arteries. CLINICAL HISTORY: History of falls. US carotid duplex has been performed to evaluate. TECHNIQUE: Real-time ultrasound scan of the bilateral carotid and vertebral arteries, 2-D espinoza scale, with color Doppler flow and spectral waveform analysis. Note: Per PQRS, velocity criteria are extrapolated from diameter data as defined by the Society of Radiologists in Ultrasound Consensus Conference (Radiology 2003; 229; 340-346). COMPARISON: None provided. FINDINGS: RIGHT COMMON CAROTID ARTERY: Peak systolic velocity 52 cm/sec. No occlusion or significant stenosis. RIGHT INTERNAL CAROTID ARTERY: Peak systolic velocity 52 cm/sec. No occlusion or significant stenosis. RIGHT EXTERNAL CAROTID ARTERY: Peak systolic velocity 119 cm/sec. No occlusion or significant stenosis. RIGHT VERTEBRAL ARTERY: Antegrade flow with peak systolic velocity 42 cm/sec. RIGHT ICA/CCA RATIO:1. LEFT COMMON CAROTID ARTERY: Peak systolic velocity 67 cm/sec. No occlusion or significant stenosis. LEFT INTERNAL CAROTID ARTERY: Peak systolic velocity 67 cm/sec. No occlusion or significant stenosis. LEFT EXTERNAL CAROTID ARTERY: Peak systolic velocity 102 cm/sec. No occlusion or significant stenosis. LEFT VERTEBRAL ARTERY: Antegrade flow with peak systolic velocity 39 cm/sec. LEFT ICA/CCA RATIO:1. SOFT TISSUES: No incidental abnormalities. IMPRESSION: 1. Normal carotid and vertebral duplex. /[place]
[2025-01-03] VITALS (9 sets, daily range): BP systolic 104–142; BP diastolic 67–81; PULSE 71–112; RESP 17–24; TEMP 97.8–98.5; O2SAT 96–97
[2025-01-03 03:36] LABS: IMMATURE GRANULOCYTE ABSOLUTE 0.03 K/uL (0-1); NUCLEATED RED BLOOD CELLS 0.0 % (0.0-0.19); PLATELET COUNT (AUTO) 83 K/uL (130-400); RED BLOOD CELL COUNT(AUTO) 3.78 MIL/uL (4.50-6.20); RED CELL DISTRIBUTION WIDTH 12.0 % (11.0-15.5); WHITE BLOOD COUNT (AUTO) 4.4 K/uL (4.8-10.8)
[2025-01-03 04:09] LABS: ASPARTATE AMINOTRANSFERASE 148.0 U/L (10-37); CREATININE 0.9 mg/dL (0.5-1.3); GLOMERULAR FILTR. RATE CALC 94.0 mL/min (>90); GLUCOSE,RANDOM 97.0 mg/dL (70-105); LDL DIRECT 126.0 mg/dL (0-99); SODIUM SERUM 134.0 mmol/L (136-145); TOTAL PROTEIN, SERUM 6.9 g/dL (6.0-8.3); UREA NITROGEN, BLOOD 7.0 mg/dL (7-18)
[2025-01-03] MEDS: MAGNESIUM 2GM PREMIX 50ML 50 ML IV PRN (05:27)
--- NOTE | 2025-01-03 07:19 | PN ---
[facility] PROGRESS NOTE Date of Service: Jan 03, 2025 Time of Service: 07:19 SUBJECTIVE: [ ] admission date: CC weakness PCP David Carcamo this a 64 year old male after having a fall at home 2-3 days ago. Patient has a significant medical history of falls in the past patient reports worsening lower extremity weakness. Patient reports he drinks alcohol his last consumption was on Monday . He also Reports his also drinks heavily. Patient denies any episodes of chest pain, dizziness palpitations diarrhea nausea and vomiting. But he does mention he has been getting shortness a breath. Patient is very hard of hearing. The patient appears fragile weak. Patient will be started on a banana bag and we will be monitored closely we will replace electrolytes as per protocol. Is sitting in the chair patient work with physical therapy today. UTI so far cultures are negative patient appears to be doing much better today we will continue to work with physical therapy replace electrolytes. REVIEW OF SYSTEMS a 12 point ROS obtained all relevant positive documented otherwise ROS negative PHYSICAL EXAM GENERAL APPEARANCE: The patient is awake, alert, and oriented, in no acute cardiopulmonary distress. NEUROLOGICAL: Cranial nerves II-XII grossly intact. Motor is 5/5 in bilateral upper and lower extremities proximal to distal. No sensory deficits. HEENT: Face is symmetric. Pupils are equal and reactive. Extraocular movements are intact. NECK: Supple. No JVD. No thyromegaly. No submental, submandibular, pre- /postauricular, occipital or supraclavicular lymphadenopathy. CHEST: Normal chest expansion. No Telemetry. LUNGS: Absence of any rales, rhonchi or any wheezing. CARDIOVASCULAR: Regular. S1 and S2 normal. No appreciable rubs, murmurs or gallops. ABDOMEN: Soft, nontender, and nondistended. There is no rebound, voluntary guarding, or rigidity. : Deferred. No Adler. EXTREMITIES: Non-edematous and not cyanotic. No clubbing. Good capillary refill. SKIN: No skin breakdown. Vital Signs (last 8hr) Date Time Temp Pulse Resp B/P (MAP) Pulse Ox O2 Delivery O2 Flow Rate FiO2 01/03/25 04:02 97.9 75 20 115/70 94 Room Air 01/03/25 00:10 98.1 82 20 104/74 97 Room Air LABS: Laboratory: Test 01/03/25 03:22 01/02/25 10:17 01/02/25 08:21 Range/Units White Blood Count 4.4 L 4.8-10.8 K/uL Red Blood Count 3.78 L 4.50-6.20 MIL/uL Hemoglobin 13.8 L 14.0-18.0 g/dL Hematocrit 38.2 L 42-54 % Mean Corpuscular Volume 101.1 H 79-99 fL Mean Corpuscular Hemoglobin 36.5 H 27.0-33.0 pg Mean Corpuscular Hemoglobin Concent 36.1 H 32.0-36.0 g/dL Red Cell Distribution Width 12.0 11.0-15.5 % Platelet Count 83 L 130-400 K/uL Mean Platelet Volume 10.0 7.5-10.5 fL Immature Granulocyte % (Auto) 0.7 0-1 % Neutrophils (%) (Auto) 59.6 40.0-77.0 % Lymphocytes (%) (Auto) 26.8 21.0-51.0 % Monocytes (%) (Auto) 9.7 3.0-13.0 % Eosinophils (%) (Auto) 2.3 0.0-8.0 % Basophils (%) (Auto) 0.9 0.0-5.0 % Neutrophils # (Auto) 2.7 1.8-7.7 K/uL Lymphocytes # (Auto) 1.2 1.0-4.8 K/uL Monocytes # (Auto) 0.4 0.1-1.0 K/uL Eosinophils # (Auto) 0.10 0.00-0.70 K/uL Basophils # (Auto) 0.04 0.00-0.20 K/uL Absolute Immature Granulocyte (auto 0.03 0-1 K/uL Nucleated Red Blood Cells 0.0 0.0-0.19 % Sodium Level 134 L 136-145 mmol/L Potassium Level 3.5 3.5-5.1 mmol/L Chloride Level 98 L 101-111 mmol/L Carbon Dioxide Level 25 21-32 mmol/L Blood Urea Nitrogen 7 7-18 mg/dL Creatinine 0.9 0.5-1.3 mg/dL Glomerular Filtration Rate Calc 94 >90 mL/min Random Glucose 97 70-105 mg/dL Total Calcium 9.0 8.5-10.1 mg/dL Magnesium Level 1.80 1.80-2.40 mg/dL Total Bilirubin 3.0 #H 0.2-1.0 mg/dL Aspartate Amino Transf (AST/SGOT) 148 H 10-37 U/L Alanine Aminotransferase (ALT/SGPT) 115 H 12-78 U/L Alkaline Phosphatase 48 L 50-136 U/L Total Protein 6.9 6.0-8.3 g/dL Albumin 3.1 L 3.5-5.0 g/dL Triglycerides Level 91 30-200 mg/dL Cholesterol Level 169 <200 mg/dL LDL Cholesterol 126 H 0-99 mg/dL HDL Cholesterol 23 L 29-71 mg/dL Thyroid Stimulating Hormone (TSH) 3.36 0.36-3.74 uIU/mL Urine Color DARK YELLOW YELLOW Urine Appearance CLEAR CLEAR Urine pH 6.5 5.0-8.0 Urine Specific Madill 1.020 1.001-1.031 Urine Protein 30 H NEGATIVE mg/dL Urine Glucose (UA) 100 H NEGATIVE mg/dL Urine Ketones >=80 H NEGATIVE mg/dL Urine Occult Blood NEGATIVE NEGATIVE Urine Nitrate POSITIVE H NEGATIVE Urine Bilirubin LARGE H NEGATIVE mg/dL Urine Urobilinogen >=8.0 H 0.2-1.0 mg/dL Urine Leukocyte Esterase NEGATIVE NEGATIVE Antolin/uL Urine RBC 0-1 0-1 /HPF Urine WBC 0-1 0-1 /HPF Urine Squamous Epithelial Cells 0-2 0-2 /HPF Urine Calcium Oxalate Crystals Few H None Seen /LPF Urine Bacteria Few None Seen /HPF Red Blood Cell Morphology See comments Lactic Acid Level 1.9 0.8-2.5 mmol/L Direct Bilirubin 2.7 H 0.0-0.3 mg/dL Total Creatine Kinase 25 # 21-232 U/L Troponin I High Sensitivity 15 4-75 ng/L Current Medications Medications (Trade) Dose Ordered Sig/Meeta Route PRN Reason Start Time Stop Time Status Last Admin Dose Admin Chlordiazepoxide HCl (LIBrium 25 MG CAP) 25 mg Q2H PRN PO ALCOHOL WITHDRAWAL PROTOCOL 01/02/25 11:00 01/09/25 10:59 Diazepam (VALium 5 MG/ML 2 ML SYG) 5 mg ONCE STAT IV 01/02/25 09:40 01/02/25 09:46 DC 01/02/25 09:54 5 MG Folic Acid (FOLic ACID 1 MG TABLET) 1 mg DAILY PO 01/03/25 09:00 01/05/25 09:01 Hydralazine HCl (APRESOLine 20MG INJ) 5 mg Q4H PRN IV ADMINISTER FOR SBP > 160 01/02/25 11:00 02/01/25 10:59 Lactulose (Constulose 20gm/ 30ml Udcup) 20 gm BID PRN PO CONSTIPATION 01/02/25 11:00 02/01/25 10:59 Lorazepam (AtiVAN) 2 mg Q4H PRN IVP ALCOHOL WITHDRAWAL PROTOCOL 01/02/25 11:00 01/09/25 10:59 Magnesium Oxide (Mag-Ox) 800 mg ONCE STAT PO 01/02/25 08:57 01/02/25 09:01 DC 01/02/25 09:26 800 MG Magnesium Sulfate 50 ml @ 0 mls/hr PROTOCOL PRN IV low mag level 01/02/25 11:00 02/01/25 10:59 01/03/25 05:27 25 MLS/HR Ondansetron HCl (zoFRAN 4MG INJ) 4 mg ONCE STAT IVP 01/02/25 09:40 01/02/25 09:46 DC 01/02/25 09:54 4 MG Ondansetron HCl (zoFRAN 4MG INJ) 4 mg Q6H PRN IVP NAUSEA/VOMITING 01/02/25 11:00 02/01/25 10:59 01/02/25 19:44 4 MG Pantoprazole Sodium (PROTonix 40MG INJ) 40 mg DAILY IVP 01/03/25 09:00 02/02/25 08:59 Pharmacy Profile Note (Pharmacy Communication) 1 each PROTOCOL PRN MISC ETOH Withdrawal Score changes 01/02/25 11:00 01/09/25 10:59 Potassium Chloride 100 ml @ 100 mls/hr AD PRN IV POTASSIUM PROTOCOL 01/02/25 11:00 02/01/25 10:59 Potassium Chloride (K-Dur/Klor-Con 20meq) 20 meq AD PRN PO POTASSIUM PROTOCOL 01/02/25 11:00 02/01/25 10:59 01/03/25 05:27 20 MEQ Potassium Chloride (K-Dur/Klor-Con 20meq) 40 meq ONCE STAT PO 01/02/25 08:57 01/02/25 09:01 DC 01/02/25 09:25 40 MEQ Potassium Chloride (KCl 10% Elixir 20meq/15ml) 20 meq AD PRN PO POTASSIUM PROTOCOL 01/02/25 11:00 02/01/25 10:59 Thiamine HCl (Vitamin B-1) 100 mg DAILY IM 01/03/25 09:00 01/05/25 09:01 Thiamine HCl 100 mg/Folic Acid 1 mg/Multivitamins/ Minerals 10 ml/ Sodium Chloride 1,011.2 ml @ 100 mls/ hr Q24H IV 01/02/25 11:00 01/04/25 21:07 01/02/25 11:40 100 MLS/HR DIAGNOSTICS / RADIOLOGY: [ ] ASSESSMENT: Multiple falls in the past POA most recent two days ago POA electrolytes derangement: hyponatremia Hypokalemia Recent fall two days ago POA Failure to thrive POA Physical deconditioning 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 Consultants: none Antibiotics: Rocephin 1 gm IV daily urine cultures: Negative no growth 18-24 hrs Imaging carotid Doppler 2D echo to evaluate LV function PT continue to work with the patient. 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 Lilly P. c/d This document was generated in part using voice recognition software, occasional wrong word or sound alike substitutions may have occurred due to the inherent limitations of voice recognition software. Read the chart carefully and recognize using context, where the substitutions have occurred. Although every effort was made to edit the content, outside machinist supervisor and typing errors may occur ATTESTATION BY PHYSICIAN I have seen and examined the patient. I reviewed the documentation, medical decision making, and treatment plan as noted by the mid-level provider above. I agree with the findings and plan of care. Joyce Lilly MD, [facility] Jan 03, 2025 07:19
[2025-01-03] MEDS: THIAMINE HCL 100 MG/ML 2ML VIAL IM SCH (07:45)
--- NOTE | 2025-01-03 13:05 | NUR ---
SUMMARY- ORTHOS NEGATIVE, EXPECT DC W/IN 24 HRS.
--- NOTE | 2025-01-03 13:27 | HMCSR ---
APPROVED REPORT EXAM: Two-dimensional and M-mode echocardiogram with Doppler and color Doppler. INDICATION ICD: Shortness of breath R06.02 2D Dimensions RVDd 4.3 cm LVEF(%) 73.8 (>50%) LVED Vol(simp.) 137.0 mL IVSd 1.2 (0.7-1.1cm) FS(%) 43 % LVES Vol(simp.) 48.0 mL LVDd 4.5 (3.8-5.6cm) LA (2D) 3.9 (1.6-4.0cm) LVEF(%, simp.) 65 % PWd 1.1 (0.7-1.1cm) Ao Root(2D) 3.4 (2.0-3.7cm) LA ESV INDEX (BP) 28.85 mL/m2 LVDs 2.6 (2.5-4.0cm) LVOT diam 2.2 (1.8-2.4cm) Deformation Strain Apical 4 -19.6 % Apical 2 -19.4 % Apical 3 -19.2 % Global Strain -19.4 % M-Mode Dimensions LA (MM) 3.5 (1.6-4.0cm) Ao Root(MM) 3.6 (2.0-3.7cm) Aortic Valve AoV Vmax 2.1 m/s Ao Peak GR 17.7 mmHg LVOT Vmax 1.3 m/s AoV VTI 0.4 m Ao Mean GR 8.4 mmHg LVOT VTI 0.30 m LUISA (VMAX) 2.28 cm2 LUISA (VTI) 2.5 cm2 Mitral Valve MV E Vmax 73.0 cm/s DECEL Time 195 ms MV A Vmax 71.6 cm/s P 1/2 T 46 ms E/A ratio 1.0 MVA (PHT) 4.8 cm2 TDI E/E' Medial 8.2 E/E' Lateral 7.2 Medial E' Peak V 8.95 cm/s Lateral E' Peak V 10.20 cm/s Pulmonary Valve PV Vmax 1.0 m/s PV VTI 0.32 m PV Mean GR 2.8 mmHg PV Peak GR 4.2 mmHg Left Ventricle The left ventricle is normal size. There is normal left ventricular wall thickness. LVEF is 60-65%. The left ventricular diastolic function is normal. Right Ventricle The right ventricle is borderline dilated. The right ventricular systolic function is normal. Atria The left atrium size is normal. The right atrium size is normal. Aortic Valve Aortic valve is trileaflet. The aortic valve is mildly thickened but opens well. No aortic regurgitation is present. There is no aortic valvular stenosis. Mitral Valve Mitral valve leaflets appear normal. Mitral valve leaflets open well. Mitral regurgitation is trace. There is no mitral valve stenosis. Tricuspid Valve The tricuspid valve is normal in structure. There is no tricuspid valve regurgitation noted. Pulmonic Valve The pulmonary valve is normal in structure. There is no pulmonic valvular regurgitation. Great Vessels The aortic root is normal in size. The IVC was not visualized. Pericardium There is no pericardial effusion. Conclusion The left ventricle is normal size. LVEF is 60-65%. The left ventricular diastolic function is normal. The right ventricle is borderline dilated. The right ventricular systolic function is normal. The left atrium size is normal. The right atrium size is normal. No valvular pathology. There is no pericardial effusion.
[2025-01-04] VITALS: BP 128/75; PULSE 82; RESP 20; TEMP 98.2
[2025-01-04 06:00] VITALS: BP 146/69; PULSE 79; RESP 28; TEMP 98.2
[2025-01-04 07:53] VITALS: BP 130/70; PULSE 75; RESP 18; TEMP 98
[2025-01-04 08:00] VITALS: O2SAT 98
--- NOTE | 2025-01-04 10:08 | DS ---
Discharge Summary Hospital Course Summary: admission date: weakness PCP David Carcamo this a 64 year old male after having a fall at home 2-3 days ago. Patient has a significant medical history of falls in the past patient reports worsening lower extremity weakness. Patient reports he drinks alcohol his last consumption was on Monday . He also Reports his also drinks heavily. Patient denies any episodes of chest pain, dizziness palpitations diarrhea nausea and vomiting. But he does mention he has been getting shortness a breath. Patient is very hard of hearing. The patient appears fragile weak. Patient will be started on a banana bag and we will be monitored closely we will replace electrolytes as per protocol. Is sitting in the chair patient work with physical therapy today. UTI so far cultures are negative patient appears to be doing much better today we will continue to work with physical therapy replace electrolytes. 01/04/25 patient is clinically and hemodynamically stable for discharge patient is fully awake alert oriented x3. Patient will work with physical therapy patient is able to ambulate to bathroom and bag. Patient was advised to follow- up with his PCP 2-3 days. Patient has UTI positive for nitrates cultures-48 hours blood cultures-48 hours patient will be discharged on cefdinir 300 mg p.o. b.i.d. for seven days strongly advised on safety and provided counseling on alcohol use provided resources. Procedure(s): REASON: sob ORDERING PHYSICIAN: BILL HANNA PROCEDURE: ECHO CMP - ECHO 2-D COMPLETE APPROVED REPORT EXAM: Two-dimensional and M-mode echocardiogram with Doppler and color Doppler. INDICATION ICD: Shortness of breath R06.02 2D Dimensions RVDd 4.3 cm LVEF(%) 73.8 (>50%) LVED Vol(simp.) 137.0 mL IVSd 1.2 (0.7-1.1cm) FS(%) 43 % LVES Vol(simp.) 48.0 mL LVDd 4.5 (3.8-5.6cm) LA (2D) 3.9 (1.6-4.0cm) LVEF(%, simp.) 65 % PWd 1.1 (0.7-1.1cm) Ao Root(2D) 3.4 (2.0-3.7cm) LA ESV INDEX (BP) 28.85 mL/m2 LVDs 2.6 (2.5-4.0cm) LVOT diam 2.2 (1.8-2.4cm) Deformation Strain Apical 4 -19.6 % Apical 2 -19.4 % Apical 3 -19.2 % Global Strain -19.4 % M-Mode Dimensions LA (MM) 3.5 (1.6-4.0cm) Ao Root(MM) 3.6 (2.0-3.7cm) Aortic Valve AoV Vmax 2.1 m/s Ao Peak GR 17.7 mmHg LVOT Vmax 1.3 m/s AoV VTI 0.4 m Ao Mean GR 8.4 mmHg LVOT VTI 0.30 m LUISA (VMAX) 2.28 cm2 LUISA (VTI) 2.5 cm2 Mitral Valve MV E Vmax 73.0 cm/s DECEL Time 195 ms MV A Vmax 71.6 cm/s P 1/2 T 46 ms E/A ratio 1.0 MVA (PHT) 4.8 cm2 TDI E/E' Medial 8.2 E/E' Lateral 7.2 Medial E' Peak V 8.95 cm/s Lateral E' Peak V 10.20 cm/s Pulmonary Valve PV Vmax 1.0 m/s PV VTI 0.32 m PV Mean GR 2.8 mmHg PV Peak GR 4.2 mmHg Left Ventricle The left ventricle is normal size. There is normal left ventricular wall thickness. LVEF is 60-65%. The left ventricular diastolic function is normal. Right Ventricle The right ventricle is borderline dilated. The right ventricular systolic function is normal. Atria The left atrium size is normal. The right atrium size is normal. Aortic Valve Aortic valve is trileaflet. The aortic valve is mildly thickened but opens well. No aortic regurgitation is present. There is no aortic valvular stenosis. Mitral Valve Mitral valve leaflets appear normal. Mitral valve leaflets open well. Mitral regurgitation is trace. There is no mitral valve stenosis. Tricuspid Valve The tricuspid valve is normal in structure. There is no tricuspid valve regurgitation noted. Pulmonic Valve The pulmonary valve is normal in structure. There is no pulmonic valvular regurgitation. Great Vessels The aortic root is normal in size. The IVC was not visualized. Pericardium There is no pericardial effusion. Conclusion The left ventricle is normal size. LVEF is 60-65%. The left ventricular diastolic function is normal. The right ventricle is borderline dilated. The right ventricular systolic function is normal. The left atrium size is normal. The right atrium size is normal. No valvular pathology. There is no pericardial effusion. REASON: falls ORDERING PHYSICIAN: BILL HANNA PROCEDURE: CAROTID - US CAROTID DUPLEX EXAM: US Duplex Bilateral Carotid and Vertebral Arteries. CLINICAL HISTORY: History of falls. US carotid duplex has been performed to evaluate. TECHNIQUE: Real-time ultrasound scan of the bilateral carotid and vertebral arteries, 2-D espinoza scale, with color Doppler flow and spectral waveform analysis. Note: Per PQRS, velocity criteria are extrapolated from diameter data as defined by the Society of Radiologists in Ultrasound Consensus Conference (Radiology 2003; 229; 340-346). COMPARISON: None provided. FINDINGS: RIGHT COMMON CAROTID ARTERY: Peak systolic velocity 52 cm/sec. No occlusion or significant stenosis. RIGHT INTERNAL CAROTID ARTERY: Peak systolic velocity 52 cm/sec. No occlusion or significant stenosis. RIGHT EXTERNAL CAROTID ARTERY: Peak systolic velocity 119 cm/sec. No occlusion or significant stenosis. RIGHT VERTEBRAL ARTERY: Antegrade flow with peak systolic velocity 42 cm/sec. RIGHT ICA/CCA RATIO:1. LEFT COMMON CAROTID ARTERY: Peak systolic velocity 67 cm/sec. No occlusion or significant stenosis. LEFT INTERNAL CAROTID ARTERY: Peak systolic velocity 67 cm/sec. No occlusion or significant stenosis. LEFT EXTERNAL CAROTID ARTERY: Peak systolic velocity 102 cm/sec. No occlusion or significant stenosis. LEFT VERTEBRAL ARTERY: Antegrade flow with peak systolic velocity 39 cm/sec. LEFT ICA/CCA RATIO:1. SOFT TISSUES: No incidental abnormalities. IMPRESSION: 1. Normal carotid and vertebral duplex. /[place] REASON: fall ORDERING PHYSICIAN: ALINE CHAPMAN MD PROCEDURE: HEAD WO - CT HEAD/BRAIN W/O CONTRAST EXAM: CT Head Without IV contrast. CLINICAL HISTORY: Fall. TECHNIQUE: Axial computed tomography images of the head/brain without intravenous contrast. COMPARISON: None provided. FINDINGS: BRAIN: No evidence of acute hemorrhage. No mass lesion. No CT evidence for acute territorial infarct. No midline shift or extra-axial collections. Diffuse cerebral atrophy in the form of prominent cortical sulci and ventricular system. Diffuse hypodensities in bilateral periventricular white matter, suggestive of mild chronic small vessel ischemic changes. VENTRICLES: No hydrocephalus. ORBITS: The orbits are unremarkable. SINUSES AND MASTOIDS: The paranasal sinuses and mastoid air cells are clear. BONES: No fracture. SOFT TISSUES: Unremarkable. IMPRESSION: No acute intracranial abnormality. Mild chronic ischemic changes secondary to small vessel disease. /[place] Assessment/Plan: /DISCHARGED DX'S; Multiple falls in the past POA most recent two days ago POA electrolytes derangement: hyponatremia Hypokalemia Recent fall two days ago POA Failure to thrive POA Physical deconditioning PLATINUM Alcohol dependency UTI chronic problems: HTN, HLD PLAN: ADMISSION DATE: DISCHARGE DATE: 01/04/2025 DISPOSITION: Home CONDITION: Stable COLLEGE OR UNIVERSITY BUSINESS MANAGER(S): None FOLLOW UP APPOINTMENT(S): PCP 2-3 days PROCEDURES: None IMAGING (S) report attached to summary : Echo, carotid, head CT, checks x-ray MICROBIOLOGY: report attached to summary; ACTIVITY: ab ayad HOME MEDICATIONS reviewed list CHANGES ON HOME MEDICATIONS none NEW MEDICATIONS cefdinir 300mg po bid for 7 days TEACHING: ETOH couseling provided and resource provided Emergency instructions: The patient was instructed to present to the nearest Emergency Department or call 911 should their symptoms return or worsen. Home Medications: Active Scripts Cefdinir (Cefdinir) 300 Mg Capsule, 1 CAP PO BID for 7 Days, #14 CAP 0 Refills Prov:BILL HANNA AGACNNimo 01/04/25 Ondansetron (Ondansetron Odt) 4 Mg Tab.rapdis, 4 MG PO 5X/DAY for 5 Days, #25 TAB Prov:NEIL EPPERSON MD 02/13/24 Reported Medications Olmesartan Medoxomil (Olmesartan Medoxomil) 40 Mg Tablet, 40 MG PO DAILY, TAB 03/02/23 Atorvastatin Calcium (Atorvastatin Calcium) 40 Mg Tablet, 40 MG PO HS, TAB 03/02/23 Amlodipine Besylate (Amlodipine Besylate) 5 Mg Tablet, 5 MG PO DAILY, TAB 03/02/23 Discontinued Scripts Amoxicillin/Potassium Clav (Amox Tr-K Clv 875-125 mg Tab) 875 Mg-125 Mg Tablet, 1 EACH PO BID for 10 Days, #10 TAB 0 Refills Prov:NEIL EPPERSON MD 02/13/24 New Medications: Cefdinir (Cefdinir) 300 Mg Capsule 1 CAP PO BID for 7 Days, #14 CAP 0 Refills Continued Medications: Amlodipine Besylate (Amlodipine Besylate) 5 Mg Tablet 5 MG PO DAILY, TAB Atorvastatin Calcium (Atorvastatin Calcium) 40 Mg Tablet 40 MG PO HS, TAB Olmesartan Medoxomil (Olmesartan Medoxomil) 40 Mg Tablet 40 MG PO DAILY, TAB Ondansetron (Ondansetron Odt) 4 Mg Tab.rapdis 4 MG PO 5X/DAY for 5 Days, #25 TAB Discontinued Medications: Amoxicillin/Potassium Clav (Amox Tr-K Clv 875-125 mg Tab) 875 Mg-125 Mg Tablet 1 EACH PO BID for 10 Days, #10 TAB 0 Refills Time spent arranging discharge: 31-60 minutes ATTESTATION BY PHYSICIAN I have seen and examined the patient. I reviewed the documentation, medical decision making, and treatment plan as noted by the mid-level provider above. I agree with the findings and plan of care. Giles Resendez MD, [facility] Jan 04, 2025 10:08
--- NOTE | 2025-01-04 10:37 | NUR ---
patient states that is coming to pick him up.
--- NOTE | 2025-01-04 10:41 | NUR ---
cm note spoke to pt and states has called and she will be coming to pick him up for discharge. discussed dc plan with pt, and states that he feels safe to return home with spouse at discharge. states no dc needs.
[2025-01-04 10:59] LABS: IMMATURE GRANULOCYTE ABSOLUTE 0.04 K/uL (0-1); NUCLEATED RED BLOOD CELLS 0.0 % (0.0-0.19); PLATELET COUNT (AUTO) 96 K/uL (130-400); RED BLOOD CELL COUNT(AUTO) 3.82 MIL/uL (4.50-6.20); RED CELL DISTRIBUTION WIDTH 12.3 % (11.0-15.5); WHITE BLOOD COUNT (AUTO) 5.2 K/uL (4.8-10.8)
[2025-01-04 11:34] LABS: CREATININE 0.8 mg/dL (0.5-1.3); GLOMERULAR FILTR. RATE CALC 98.0 mL/min (>90); GLUCOSE,RANDOM 109.0 mg/dL (70-105); SODIUM SERUM 133.0 mmol/L (136-145); UREA NITROGEN, BLOOD 6.0 mg/dL (7-18)
[2025-01-04 11:39] LABS: ASPARTATE AMINOTRANSFERASE 146.0 U/L (10-37); TOTAL PROTEIN, SERUM 7.2 g/dL (6.0-8.3)
[2025-01-04] MEDS: PoTASSium chloRIDE 20MEQ ER 20 MEQ ERTAB PO ONE (11:47)
--- NOTE | 2025-01-04 11:49 | NUR ---
PASSENGER TRAIN BRAKER reviewed labs, patient may be DC home. Patient alert and oriented with spouse at bedside being discharged home. 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 Medications explained to patient and spouse. Educated to follow up with PCP. IV removed without complications. All questions answered, patient and spouse verbalized complete understanding. Patient gathered all belongings and took with him at [place].
== END 2025-01-04 12:15 | disposition home or self-care (01) ==
LOC: EDH 07:58 → EDHIP 10:42 → UNDOADMOB 10:42 → EDHIP 10:42 → INTOOBSV 10:42 → EDHIP 12:40 → 4AH 12:40
PROVIDERS: ADMIT Hospitalist; ATTEND Hospitalist
DX: E87.6 Hypokalemia (principal); E87.1 Hypo-osmolality and hyponatremia; R62.7 Adult failure to thrive; F10.20 Alcohol dependence, uncomplicated; I10 Essential (primary) hypertension; E78.00 Pure hypercholesterolemia, unspecified; N39.0 Urinary tract infection, site not specified; R11.0 Nausea; R11.2 Nausea with vomiting, unspecified; R53.1 Weakness; R79.89 Other specified abnormal findings of blood chemistry; R26.0 Ataxic gait; Z79.899 Other long term (current) drug therapy; Z98.890 Other specified postprocedural states
CPT/HCPCS: 96376 ×3; 96365; 96366 ×3; 96375 ×3; 99285; 82550; 80076; 84484; 84132; 80048; 85025 ×3; 87040 ×2; 87086; 83605; 81001; 36415 ×3; 71045; 70450; 93880; 93005; 96372 ×2; 96368; 84443; 83735 ×2; 80061; 80053 ×2; 93306; 93356; 97161; 97116 ×2; 97530 ×3; J7030 ×3; J3360; J3411 ×5; J2405 ×2; J3490 ×3; J2470 ×3; G0378 ×22; J3475; J0696; 96367; 96374